=== PATIENT | female | born 1980 | race Caucasian/White ===

== ENCOUNTER 2017-09-03 15:23 | Inpatient (IN) ==
[2017-09-03] MEDS ORDERED: HYDROmorphone 2 MG/1 ML IVP ONE ×2 (15:49→18:37)
[2017-09-03] MEDS ORDERED: Sodium Chloride 0.9% 1,000 ML PRIMARY IV ONE (15:49)
[2017-09-03 16:17] LABS: BASOPHILS # (AUTO) 0.04 10*3/UL; BASOPHILS % (AUTO) 0.2 % (0-1); EOSINOPHILS # (AUTO) 0.22 10*3/UL; EOSINOPHILS % (AUTO) 1.3 % (0-8); Hematocrit [HCT] 39.8 % (37.0-47.0); Hemoglobin [HGB] 13.4 g/dL (12.0-16.0); LYMPHOCYTES # (AUTO) 3.32 10*3/uL; MEAN CORPUSCULAR HEMOGLOBIN 28.6 PG (27-31); MEAN CORPUSCULAR HGB CONC 33.7 g/dL (33-37); MEAN CORPUSCULAR VOLUME 84.9 FL (81-99); MONOCYTES # (AUTO) 1.26 10*3/UL (0.3-0.8); MONOCYTES % (AUTO) 7.4 % (5-15); NEUTROPHILS # (AUTO) 12.12 10*3/UL; NEUTROPHILS % (AUTO) 71.4 % (50-80); RED BLOOD COUNT 4.69 10^6/uL (4.20-5.40)
[2017-09-03 16:21] LABS: BILIRUBIN,URINE NEGATIVE (NEG); CLARITY,URINE Slightly Cloudy (CLEAR); COLOR,URINE YELLOW (Y); GLUCOSE, URINE (UA) NEGATIVE (NEG); OCCULT BLOOD,URINE LARGE (NEG); PROTEIN,URINE 100 mg/dl (NEG); UROBILINOGEN,URINE 0.2 EU/dL (0.2)
[2017-09-03 16:23] LABS: PLATELET MORPHOLOGY COMMENT NORMAL MORPHOLOGY (NORM); RBC MORPHOLOGY COMMENT NORMAL MORPHOLOGY (NORM); WBC MORPHOLOGY COMMENT NORMAL MORPHOLOGY (NORM)
[2017-09-03 16:34] LABS: BACTERIA,URINE FEW; RBC,URINE 15-20 /hpf; SQUAMOUS EPITHELIAL CELL,UR RARE; URINE SAMPLE TYPE CATH SPECIMEN; WBC,URINE 80-100
[2017-09-03 16:39] LABS: BLOOD UREA NITROGEN 6 mg/dL (7-22); LIPASE 62 IU/L (23-300); SERUM ALBUMIN 4.1 g/dL (3.5-4.8)
--- NOTE | 2017-09-03 18:40 | DI ---
CT ABDOMEN SCAN WITH IV CONTRAST, 09/03/2017 3:50 PM : Clinical History: Abdominal pain. Previous Exam: None at this facility. Scans are performed from the lower lung bases through the liver and kidneys with IV contrast. 70 mL o f Isovue 370 was injected IV. No oral or rectal contrast was ordered. The lung bases are clear. A pacemaker lead is visualized in the right ventricle. The liver is normal. The gallbladder is grossly normal. There is no abnormality of the spleen, pancreas, and adrenal glan ds. Both kidneys are normal in size, shape, position and contour. There is no hydronephrosis or hydro ureter. No renal or ureteral calculi are present. There are no abnormal retrocrural or periaortic nod es but there are numerous lymph nodes in the mesentery of the left upper abdomen and several of these are mildly enlarged measuring up to 15 mm in diameter. No ascites is present. READING: There are numerous lymph nodes in the mesentery of the left upper quadrant in some of these are borde rline enlarged measuring up to 15 mm in diameter. The etiology of this finding is uncertain. CT PELVIS SCAN WITH IV CONTRAST, 09/03/2017 3:50 PM: Clinical History: See above. Previous Exam: None at this facility. Scans are performed from just superior to the umbilicus to the symphysis pubis with IV contrast. This is the same bolus of contrast used for the CT scans of the abdomen. Scans through the lower abdomen and pelvis show no masses, enhancing lesions, or abnormal fluid colle ctions. There is no adenopathy. The appendix is normal. The small bowel, terminal ileum, and ileoceca l valve are normal. The colon is also normal. There is a small umbilical hernia through which only me senteric fat has herniated. The uterus is normal and the patient apparently has had embolization of b oth uterine tubes with metallic wires. There is a small cystic 15 mm lesion of the left ovary. The ri ght ovary is normal. READING: Except for a small 15 mm cystic lesion of the left ovary, the study is normal.
[2017-09-03] MEDS ORDERED: cefTRIAXone Inj 1 GM in Sodium Chloride 0.9% 100 ML IV ONE ×2 (18:41→18:42)
--- NOTE | 2017-09-03 21:02 | PDOC ---
HPI - History of Present Illness Date of Service: 09/03/17 Time of Service: 21:00 Chief Complaint: Pain after urination and pain in the left flank area of one day duration History of Present Illness: This is a 37 years old female with medical history significant for history of congestive heart failure with previous defibrillator insertion believed to be secondary to viral infection who presented to the hospital with history of pain after urination. In addition she complained from pain on the left flank area. She picked up [id number] prescription however she continued to have symptoms and because of that she came into the ER. Evaluation in the ER revealed elevated white count, abnormal UA and CT showed mesenteric lymph nodes in the left side because of that she was admitted. She is rating her pain maybe 8 out of 10. However she does not appear in distress. no nausea or vomiting. She did report low grade temperature last night. She lives in [place] and camping in [place] now was planing on returning on Sunday but now she thinks she will return tomorrow. Past Medical History Medical History: 1. History of congestive heart failure with previous defibrillator insertion, last ejection fraction was 60%. 2. History of depression Surgical History: History of defibrillator insertion for low ejection fraction Family History: Reviewed an Not Pertinent Past Social History: Lives in [place], smokes pack-a-day no drugs doesn't drink. Tobacco Use: Smoker Current Status Unknown In the Past 12 Months, Have Used or Abuse Any of the Following Substance: None Alcohol Use: None Medication / Allergies Home Medications: Home Medications 3 Medication Instructions Recorded Confirmed Type Carvedilol 09/03/17 History Prazosin HCl 09/03/17 History Sertraline HCl 09/03/17 History Zolpidem Tartrate [Ambien] BEDTIME PRN 09/03/17 History Allergies/Adverse Reactions: Allergies 3 Allergy/AdvReac Type Severity Reaction Status Date / Time No Known Allergies Allergy Verified 09/03/17 22:26 Review of Systems - Review of Systems All Systems: Reviewed & No Additional Complaints Except as Stated Exam - Vitals Vital Signs: Vital Signs Temperature 36.0 F Temperature Source Temporal Artery Scan Pulse Rate [Pulse Oximeter] 94 Respiratory Rate 20 Blood Pressure [Left Arm] 117/78 Pulse Ox 94 Oxygen Delivery Method Room Air Height 5 ft 3 in Weight 240 lb - General General Appearance: No Acute Distress, Cooperative, Obese - Head Head Exam: Normal Inspection - Eye Eye Exam: POSITIVE: Normal Appearance - ENT ENT Exam: POSITIVE: Normal Exam - Neck Neck Exam: Normal Inspection - Respiratory Respiratory Exam: POSITIVE: Clear to Auscultation - Bilaterally - Cardiovascular Cardiovascular Exam: POSITIVE: RRR - GI/Abdominal GI/Abdominal Exam: POSITIVE: Normal Bowel Sounds, Non Distended, Soft, No Organomegaly Additional GI/Abdominal Exam Details: There is tenderness in the left mid abdomen in the side of the abdomen. No significant CVA tenderness. - Rectal Rectal Exam: POSITIVE: Deferred - External Exam: POSITIVE: Deferred - Extremities Extremities Exam: POSITIVE: Normal Inspection - Back Back Exam: POSITIVE: Normal Inspection - Neurological Neurological Exam: POSITIVE: Alert, Oriented x 3, CN II-XII Intact, No Facial Droop, Speech Intact / Clear, Moves All Extremities Equally - Psychiatric Psychiatric Exam: POSITIVE: Normal Affect Results - Labs CBC and BMP: 09/03/17 16:10 09/03/17 16:10 - Imaging Status: Report Reviewed by Me (CT abdomen There are numerous lymph nodes in the mesentery of the left upper quadrant in some of these are borderline enlarged measuring up to 15 mm in diameter. The etiology of this finding is uncertain. small 15 mm cystic lesion of the left ovary) Assessment and Plan - Patient Problems (1) Pyelonephritis Current Visit: Yes Status: Acute Comment: We'll treat as a pyelonephritis. She received Rocephin will continue with it. Will write for pain medications. I think because of her history of congestive heart failure will hold off on further fluids. Will repeat her labs in the morning. Code(s): N12 - Tubulo-interstitial nephritis, not specified as acute or chronic (2) Mesenteric lymphadenopathy Current Visit: Yes Status: Acute Comment: The reason for enlargement of the mesenteric lymph node on the left side is unclear. May be related to infection. I think because of acute onset of symptoms will treat as an infection. I did tell her that probably when she goes back to [place] and finish her course of antibiotics she need to have a repeat CT to look at the size of those lymph nodes. Code(s): R59.0 - Localized enlarged lymph nodes (3) History of congestive heart failure Current Visit: Yes Status: Acute Comment: Continue carvedilol. She said she is not taking Lasix unless she has some swelling. Code(s): Z86.79 - Personal history of other diseases of the circulatory system (4) History of depression Current Visit: Yes Status: Acute Comment: Continue Zoloft Code(s): Z86.59 - Personal history of other mental and behavioral disorders
[2017-09-03] MEDS ORDERED: Zolpidem Tab 5 MG TAB PO PRN (21:11)
[2017-09-03] MEDS ORDERED: DOCUSATE 100 MG CAPSULE PO PRN (21:14)
[2017-09-03] MEDS ORDERED: CALCIUM CARBONATE 500 MG (TUMS) CHEWABLE TABLET PO PRN (21:14)
[2017-09-03] MEDS ORDERED: ACETAMINOPHEN 325 MG TABLET PO PRN (21:14)
[2017-09-03] MEDS ORDERED: LIDOCAINE W/ SODIUM BICARB 0.5 ML SYR SUBD PRN (21:14)
[2017-09-03] MEDS ORDERED: ONDANSETRON 4 MG/2 ML VIAL IVP PRN (21:14)
[2017-09-03] MEDS ORDERED: HYDROcodone-APAP 5 MG -325 MG TABLET PO PRN (21:14)
[2017-09-03] MEDS: HYDROmorphone 2 MG/1 ML IVP PRN (21:55)
[2017-09-03] MEDS: Sertraline Tab 50 MG TAB PO SCH (21:56)
[2017-09-03] MEDS: CARVEDILOL 12.5 MG TABLET PO SCH (21:56)
--- NOTE | 2017-09-04 01:00 | PDOC ---
Abdomen/Flank HPI - General Chief Complaint: Abdomen Pain Stated Complaint: abdominal pain Date Seen by Provider: 09/03/17 Time Seen by Provider: 15:30 Source: POSITIVE: Patient Exam Limitations: POSITIVE: No limitations Nurse's Notes Reviewed & Considered: Yes - History of Present Illness Initial Comments: The patient is a 37-year-old female. She presents to the emergency room with a 2 day history of right flank and right lower quadrant pain. She states she had dysuria last night. No associated nausea, vomiting, diarrhea, melena, hematochezia, hematemesis, or hematuria. She's had a uterine ablation. She had a section prior to this. Patient has a history of cardiomyopathy, reportedly viral, and she does have a pacemaker defibrillator placed. She states that last night her temperature was 99F. Body Location Affected: REPORTS: Abdomen (Left lower abdomen), Back (Left flank) Timing: REPORTS: Constant, Gradual Duration: >24 hours (2 days) Severity: Moderate Quality: REPORTS: "Pain" Abdominal Pain Onset Location: REPORTS: LLQ, Flank (Left) Abdominal Pain Radiation: REPORTS: No radiation Context: REPORTS: None Modifying Factors: improves with: Other (Worsened by direct palpation) Associated Symptoms: REPORTS: Dysuria Similar Symptoms Previously: No Recent Care Received: REPORTS: Denies Any Prior Injuries Related to Current Complaint?: No - Patient Home Medications Home Medications: Home Medications Carvedilol 09/03/17 Prazosin HCl 09/03/17 Sertraline HCl 09/03/17 Zolpidem Tartrate [Ambien] BEDTIME PRN 09/03/17 - Patient Allergies Allergies/Adverse Reactions: Allergies 3 Allergy/AdvReac Type Severity Reaction Status Date / Time No Known Allergies Allergy Verified 09/03/17 22:26 Past Medical History - heen HEENT History: Denies History Cardiovascular History: Hypertension, Arrhythmia, Internal Defibrillator, Congenital Heart Disease, Other (please comment) Additional Cardiovasular History: cardiomyopathy Respiratory History: Denies History Gastrointestinal History: Denies History Genitourinary History: Denies History Endocrine History: Denies History Musculoskeletal History: Denies History Neurological History: Denies History Blood Disorders: Denies History Psychiatric History: Depression Female Reproductive History: Denies History Obstetrical History: Denies History Cancer History: Denies History In Past Year Been Physically Harmed or Verbally Threatened: No History of MDRO: No Tobacco Use: Smoker Current Status Unknown In the Past 12 Months, Have Used or Abuse Any Substance: None Previous Surgical History: Yes Type / Date of Surgery: Defibulator placement in 2010. Anesthesia Reactions: No Significant Family History: No pertinent family hx Past Medical History Reviewed: Reviewed - No Changes ROS - Limitations ROS Limitations: No Limitations Constitution: REPORTS: Fever (Last night subjectively) Respiratory: REPORTS: Denies Resp Symptoms Neurological: REPORTS: Denies Neuro Symptoms Gastrointestinal: REPORTS: Abdominal Pain (Left lower quadrant) Endocrine: REPORTS: Denies Symptoms Musculoskeletal: REPORTS: Denies MS Symptoms Genitourinary: REPORTS: Dysuria, Flank Pain (Left) Eyes: REPORTS: Denies Symptoms ENT: REPORTS: Denies Symptoms Skin: REPORTS: Denies Skin Symptoms Lympathic: REPORTS: Denies Lympathic Symptoms Immunologic: POSITIVE: Denies Symptoms Psychiatric: POSITIVE: Denies Psych Symptoms Abdominal/Flank Pain PE - General Appearance General Appearance: POSITIVE: Alert, Cooperative, No Evidence of Trauma, Moderate Distress. NEGATIVE: No Acute Distress - HEENT HEENT: POSITIVE: Head Inspection Nml, Eyes Inspection Nml, Ears Inspection Nml, Nose Inspection Nml, Oral/Dental Inspect. Nml, Pharynx Inspect. Nml, PERRL, EOMI - Neck Neck: POSITIVE: Normal Inspection, No Apparent Injury - Respiratory Respiratory: POSITIVE: No Respiratory Distress, Breath Sounds Normal, Chest Non- Tender - Cardiovascular Cardiovascular: POSITIVE: Regular Rate and Rhythm, Heart Sounds Normal, Equal Pulses, Strong Pulses Peripheral Pulses: Radial (R): 2+, Radial (L): 2+ - Chest Chest: POSITIVE: Non Tender - Abdomen Abdomen: Soft: (All Quadrants), Normal Bowel Sounds: (All Quadrants), Denies Tenderness: (RUQ), (LUQ), (RLQ), No Splenomegaly: (All Quadrants), No Hepatomegaly: (All Quadrants), No Guarding: (All Quadrants), No Rebound: (All Quadrants), No Palpable Pulse: (All Quadrants), No Palpabale Mass: (All Quadrants), No Distention: (All Quadrants), No Rigidity: (All Quadrants), Tenderness Noted: (LLQ) Additional Abdominal Details: Abdominal examination shows bowel sounds to be active. She expresses pain on palpation over the left lower abdomen and left flank. No masses, organomegaly or rebound. 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 Lab Results Reviewed by Me: Yes (catheter UA nitrate positive, 8200 white blood cells, 15-20 red blood cells) CBC and BMP: 09/03/17 16:10 09/03/17 16:10 Lab Results:: Laboratory Results 3 09/03/17 09/03/17 09/03/17 16:10 16:10 16:10 WBC 16.99 H RBC 4.69 Hgb 13.4 Hct 39.8 MCV 84.9 MCH 28.6 MCHC 33.7 RDW Std Deviation 41.7 RDW Coeff of Ryan 13.7 Plt Count 327 MPV 10.0 Immature Gran % (Auto) 0.2 Neut % (Auto) 71.4 Lymph % (Auto) 19.5 [place] % (Auto) 7.4 Eos % (Auto) 1.3 Baso % (Auto) 0.2 Immature Gran # (Auto) 0.03 Neut # (Auto) 12.12 Lymph # (Auto) 3.32 [place] # (Auto) 1.26 H Eos # (Auto) 0.22 Baso # (Auto) 0.04 WBC Morphology Comment Normal morphology Plt Morphology Comment Normal morphology RBC Morph Comment Normal morphology Sodium 142 Potassium 4.0 Chloride 106 Carbon Dioxide 24 Anion Gap 12 BUN 6 L Creatinine 0.5 Estimated GFR > 60 BUN/Creatinine Ratio 12.00 Glucose 109 Calculated Osmolality 292.0 Calcium 8.7 Total Bilirubin 0.3 AST 24 ALT 36 Alkaline Phosphatase 102 Total Protein 7.5 Albumin 4.1 Globulin 3.4 Albumin/Globulin Ratio 1.20 L Amylase 63 Lipase 62 Serum HCG, Qual Ur Collection Type Cath specimen Urine Color Yellow Urine Clarity Slightly cloudy Urine pH 6.0 Ur Specific [place] 1.010 Urine Protein 100 A Urine Glucose (UA) Negative Urine Ketones Negative Urine Occult Blood Large H Urine Nitrate Positive A Urine Bilirubin Negative Urine Urobilinogen 0.2 Ur Leukocyte Esterase Moderate Urine RBC 15-20 Urine WBC 80-100 H Ur Squamous Epith Cells Rare Ur Renal Epithelial Cell None Urine Crystals None Urine Bacteria Few Urine Casts None Urine Mucus None Urine Trichomonas None Urine Yeast None Ur Culture Indicated? Culture set 3 09/03/17 16:10 WBC RBC Hgb Hct MCV MCH MCHC RDW Std Deviation RDW Coeff of Ryan Plt Count MPV Immature Gran % (Auto) Neut % (Auto) Lymph % (Auto) [place] % (Auto) Eos % (Auto) Baso % (Auto) Immature Gran # (Auto) Neut # (Auto) Lymph # (Auto) [place] # (Auto) Eos # (Auto) Baso # (Auto) WBC Morphology Comment Plt Morphology Comment RBC Morph Comment Sodium Potassium Chloride Carbon Dioxide Anion Gap BUN Creatinine Estimated GFR BUN/Creatinine Ratio Glucose Calculated Osmolality Calcium Total Bilirubin AST ALT Alkaline Phosphatase Total Protein Albumin Globulin Albumin/Globulin Ratio Amylase Lipase Serum HCG, Qual Negative Ur Collection Type Urine Color Urine Clarity Urine pH Ur Specific [place] Urine Protein Urine Glucose (UA) Urine Ketones Urine Occult Blood Urine Nitrate Urine Bilirubin Urine Urobilinogen Ur Leukocyte Esterase Urine RBC Urine WBC Ur Squamous Epith Cells Ur Renal Epithelial Cell Urine Crystals Urine Bacteria Urine Casts Urine Mucus Urine Trichomonas Urine Yeast Ur Culture Indicated? - Patient's Progress Pain Medication Addressed: POSITIVE: Yes (Patient medicated with Dilaudid for pain) School/Work Release Addressed: POSITIVE: Not Applicable Re-examine Time: 19:50 Re-Examine Comment: Patient given a gram of Rocephin IV in the emergency room. Alternatives of treatment discussed with patient. Patient advised that we could try treating her presumed pyelonephritis with oral antibiotics if her pain is tolerable. Patient states that she is having excessive pain, and therefore patient admitted by hospitalist for further evaluation and treatment. Status: POSITIVE: Improved, Re-Examined - Consult Consult (If Yes, Name of Consulting MD & Time Called): Yes (Dr. Mcneil, hospitalist, 1950) Consulting MD will see pt:: POSITIVE: [facility] Admit Counseled: POSITIVE: Patient, RE: Lab Results, RE: Radiology Results, RE: DX, RE : Need for F/U Patient Care Time - Estimated PCT Patient Care Time (In Minutes): 60 Vital Signs - Recent Vital Signs Vital Signs: Vital Signs (Last 8 hours) Temp Pulse Pulse Resp BP BP Pulse Ox 09/03/17 21:14 98.1 F 98 18 118/81 96 09/03/17 21:13 98.1 F 09/03/17 20:31 20 09/03/17 20:25 97.5 F 104 H 18 136/88 97 - VS Reviewed Vital Signs Reviewed: Yes Discharge Clinical Impression: Pyelonephritis, Mesenteric lymphadenopathy Discharge Disposition: Admit to Inpatient Condition: Good Date Decision to Admit to Inpatient: 09/03/17 Time Decision to Admit to Inpatient: 19:50
[2017-09-04] MEDS: HYDROmorphone 2 MG/1 ML IVP PRN ×3 (01:49→09:24)
[2017-09-04 05:08] LABS: BASOPHILS # (AUTO) 0.04 10*3/UL; BASOPHILS % (AUTO) 0.3 % (0-1); EOSINOPHILS # (AUTO) 0.27 10*3/UL; EOSINOPHILS % (AUTO) 1.9 % (0-8); Hematocrit [HCT] 40.3 % (37.0-47.0); Hemoglobin [HGB] 13.1 g/dL (12.0-16.0); LYMPHOCYTES # (AUTO) 4.03 10*3/uL; MEAN CORPUSCULAR HEMOGLOBIN 28.1 PG (27-31); MEAN CORPUSCULAR HGB CONC 32.5 g/dL (33-37); MEAN CORPUSCULAR VOLUME 86.5 FL (81-99); MEAN PLATELET VOLUME 10.4 FL (7.4-12.2); MONOCYTES # (AUTO) 1.28 10*3/UL (0.3-0.8); MONOCYTES % (AUTO) 8.8 % (5-15); NEUTROPHILS # (AUTO) 8.81 10*3/UL; NEUTROPHILS % (AUTO) 60.8 % (50-80); RED BLOOD COUNT 4.66 10^6/uL (4.20-5.40)
[2017-09-04 05:40] LABS: PLATELET MORPHOLOGY COMMENT NORMAL MORPHOLOGY (NORM); RBC MORPHOLOGY COMMENT NORMAL MORPHOLOGY (NORM); WBC MORPHOLOGY COMMENT NORMAL MORPHOLOGY (NORM)
[2017-09-04 07:16] VITALS: RESP 17; O2SAT 94
[2017-09-04] MEDS: CARVEDILOL 12.5 MG TABLET PO SCH (08:23)
[2017-09-04] MEDS: Sertraline Tab 50 MG TAB PO SCH (08:23)
[2017-09-04 11:08] VITALS: BP 117/75; TEMP 97.1
[2017-09-04] MEDS ORDERED: VYVANSE 40 MG PO SCH (11:15)
[2017-09-04] MEDS ORDERED: [UNRECOGNIZED DRUG - OTHER] PO SCH (11:30)
[2017-09-04] MEDS ORDERED: oxyCODONE IR Tab 5 MG TAB PO PRN (12:37)
[2017-09-04] MEDS ORDERED: CEPHALEXIN 500 MG CAPSULE PO ONE (13:43)
--- NOTE | 2017-09-04 16:18 | DCSUMMARY ---
Hospitalization Summary Admit Date: 09/03/2017 Discharge Date: 09/04/17 Primary Diagnosis:: urinary tract infection, present on admission Secondary Diagnosis:: Left upper quadrant mesentery lymphadenitis, unclear etiology. Hospital Course: This very pleasant 37-year-old female that presented with symptoms consistent with urinary tract infection and left upper quadrant pain. A CT scan was done to look for pyelonephritis with contrast, and there is no evidence of pyelonephritis, but the patient had multiple inflamed lymph nodes and enlarged lymph nodes in the left upper quadrant region in the mesentery. The patient has never had this before. She feels significantly better after a single dose of Rocephin, has no nausea, no vomiting, no chest pain, no shortness breath, and she really would like to go home. I spoke to gastroenterology in [place], regarding the mesenteric lymphadenitis, and they suggested that the differential could include lymphoma, infection, or inflammatory bowel disease. They recommended a gastroenterology workup. I offered the patient consideration for scheduling all this in [place], but she would like to do this in [place], [place], as it is much closer to [place], [place], where the patient resides. I spoke to the patient's doctor, Dr. Orellana, with these recommendations. At this point is to treat the urinary tract infection as it is a gram-negative suzette, with greater than 100,000 colony- forming units. I suspected Escherichia coli, but will continue to follow the culture. We will de-escalate antibiotics to Keflex, 500 mg by mouth twice a day and treat for 5 days. Her, pain is well controlled with oxycodone, and I'll prescribe that as well and discharge for continued management of the pain in the left upper quadrant. The patient does have some neck and back pain, but no other arthritic symptoms, no other diarrheal symptoms, no loss of weight, and nothing else to suggest Whipple's disease. I told the patient she developed the symptoms, she should re -presented to the emergency room for evaluation. I recommended to the patient that she have a gastroenterology evaluation for inflammatory bowel disease and we trav the blood test evaluation prior to discharge. Give the patient perception for CT scan to do in 3 weeks with a diagnosis of left upper quadrant lymphadenitis. If the lymph nodes are still inflamed, I told the patient that she should consider seeing a surgeon for potential biopsy. Assessment and Plan: 1. As per discharge assessments noted 2. Disposition: Patient is discharged home. 3. Condition on discharge, stable and improved. 4. Diet: regular diet 5. Activities: resume normal activities 6. Follow-Up: 1. Dr. Vivian Orellana within 7 days in [place], [place] 2. 7. Medications at the Time of Discharge: Home Medications 3 Medication Instructions Recorded Confirmed Type Carvedilol 12.5 mg PO DAILY 09/03/17 09/04/17 History Prazosin HCl 1 mg PO DAILY 09/03/17 09/04/17 History Sertraline HCl 100 mg PO DAILY 09/03/17 09/04/17 History Zolpidem Tartrate [Ambien] 10 mg PO BEDTIME PRN 09/03/17 09/04/17 History Cephalexin [Keflex] 500 mg PO BID #8 cap 09/04/17 Rx oxyCODONE IR Tab [OxyIR Tab] 5 mg PO Q6H PRN #30 tablet 09/04/17 Rx 8. Time, care, counseling and coordination of care for this discharge is greater than 30 minutes. Exam - Vitals Vital Signs: Vital Signs Temperature 97.1 F Temperature Source Temporal Artery Scan Pulse Rate [Pulse Oximeter] 92 Pulse Rate 104 Respiratory Rate 17 Blood Pressure [Right Arm] 103/61 Blood Pressure [Left Arm] 117/75 Blood Pressure 136/88 Pulse Ox 94 Oxygen Delivery Method Room Air Height 5 ft 3 in Weight 240 lb - General General Appearance: No Acute Distress, Cooperative - Head Head Exam: Normal Inspection, Normocephalic, Atraumatic - Eye Eye Exam: POSITIVE: No Scleral Icterus - ENT ENT Exam: POSITIVE: Mucous Membranes Moist - Respiratory Respiratory Exam: POSITIVE: Clear to Auscultation - Bilaterally, Breathing Non Labored - Cardiovascular Cardiovascular Exam: POSITIVE: RRR, No Murmur, No Clicks, No Gallops, No Rubs, No JVD - GI/Abdominal GI/Abdominal Exam: POSITIVE: Normal Bowel Sounds, Non Tender, Non Distended, Soft - Extremities Extremities Exam: POSITIVE: No Clubbing Present, No Edema Present, No Cyanosis Present - Neurological Neurological Exam: POSITIVE: Alert, Oriented x 3, Normal Gait, No Facial Droop, Speech Intact / Clear, Moves All Extremities Equally - Psychiatric Psychiatric Exam: POSITIVE: Normal Affect, Normal Mood Data Peritnent Studies: Laboratory Results 09/03/17 09/03/17 09/03/17 Range/Units 16:10 16:10 16:10 WBC 16.99 H (4.8-10.8) 10^3/uL RBC 4.69 (4.20-5.40) 10^6/uL Hgb 13.4 (12.0-16.0) g/dL Hct 39.8 (37.0-47.0) % MCV 84.9 (81-99) FL MCH 28.6 (27-31) PG MCHC 33.7 (33-37) g/dL RDW Std Deviation 41.7 (39-50) fL RDW Coeff of Ryan 13.7 (11.5-14.5) % Plt Count 327 (140-350) 10*3/uL MPV 10.0 (7.4-12.2) FL Immature Gran % (Auto) 0.2 (0-5) % Neut % (Auto) 71.4 (50-80) % Lymph % (Auto) 19.5 (10-50) % Foard % (Auto) 7.4 (5-15) % Eos % (Auto) 1.3 (0-8) % Baso % (Auto) 0.2 (0-1) % Immature Gran # (Auto) 0.03 10*3/UL Neut # (Auto) 12.12 10*3/UL Lymph # (Auto) 3.32 10*3/uL Foard # (Auto) 1.26 H (0.3-0.8) 10*3/UL Eos # (Auto) 0.22 10*3/UL Baso # (Auto) 0.04 10*3/UL WBC Morphology Comment Normal morphology (NORM) Plt Morphology Comment Normal morphology (NORM) RBC Morph Comment Normal morphology (NORM) Sodium 142 (135-145) meq/L Potassium 4.0 (3.8-5.2) meq/L Chloride 106 (98-112) meq/L Carbon Dioxide 24 (23-33) meq/L Anion Gap 12 (5-20) BUN 6 L (7-22) mg/dL Creatinine 0.5 (0.50-1.20) mg/dL Estimated GFR > 60 (>60 ml/min/1.73m(2)) BUN/Creatinine Ratio 12.00 (6-20) Glucose 109 (78-110) mg/dL Calculated Osmolality 292.0 (267-292) mOsm/kg Calcium 8.7 (8.7-10.7) mg/dL Total Bilirubin 0.3 (0.3-1.2) mg/dL AST 24 (8-39) IU/L ALT 36 (9-52) IU/L Alkaline Phosphatase 102 (38-126) IU/L Total Protein 7.5 (6.1-8.0) g/dL Albumin 4.1 (3.5-4.8) g/dL Globulin 3.4 (2.50-4.10) g/dL Albumin/Globulin Ratio 1.20 L (1.3-2.0) mg/g Amylase 63 (30-110) U/L Lipase 62 (23-300) IU/L Serum HCG, Qual Ur Collection Type Cath specimen Urine Color Yellow (Y) Urine Clarity Slightly cloudy (CLEAR) Urine pH 6.0 (5.0-8.5) Ur Specific [place] 1.010 (1.005-1.030) Urine Protein 100 A (NEG) mg/dl Urine Glucose (UA) Negative (NEG) mg/dL Urine Ketones Negative (NEG) Urine Occult Blood Large H (NEG) Urine Nitrate Positive A (NEG) Urine Bilirubin Negative (NEG) Urine Urobilinogen 0.2 (0.2) EU/dL Ur Leukocyte Esterase Moderate (NEG) Urine RBC 15-20 (NONE) /hpf Urine WBC 80-100 H (NONE) Ur Squamous Epith Cells Rare (NONE) Ur Renal Epithelial Cell None (NONE) Urine Crystals None Urine Bacteria Few (NONE) Urine Casts None (NONE) Urine Mucus None (NONE) Urine Trichomonas None (NONE) Urine Yeast None (NONE) Ur Culture Indicated? Culture set 09/03/17 09/04/17 Range/Units 16:10 04:22 WBC 14.47 H (4.8-10.8) 10^3/uL RBC 4.66 (4.20-5.40) 10^6/uL Hgb 13.1 (12.0-16.0) g/dL Hct 40.3 (37.0-47.0) % MCV 86.5 (81-99) FL MCH 28.1 (27-31) PG MCHC 32.5 L (33-37) g/dL RDW Std Deviation 42.5 (39-50) fL RDW Coeff of Ryan 13.8 (11.5-14.5) % Plt Count 320 (140-350) 10*3/uL MPV 10.4 (7.4-12.2) FL Immature Gran % (Auto) 0.3 (0-5) % Neut % (Auto) 60.8 (50-80) % Lymph % (Auto) 27.9 (10-50) % Foard % (Auto) 8.8 (5-15) % Eos % (Auto) 1.9 (0-8) % Baso % (Auto) 0.3 (0-1) % Immature Gran # (Auto) 0.04 10*3/UL Neut # (Auto) 8.81 10*3/UL Lymph # (Auto) 4.03 10*3/uL Foard # (Auto) 1.28 H (0.3-0.8) 10*3/UL Eos # (Auto) 0.27 10*3/UL Baso # (Auto) 0.04 10*3/UL WBC Morphology Comment Normal morphology (NORM) Plt Morphology Comment Normal morphology (NORM) RBC Morph Comment Normal morphology (NORM) Sodium (135-145) meq/L Potassium (3.8-5.2) meq/L Chloride (98-112) meq/L Carbon Dioxide (23-33) meq/L Anion Gap (5-20) BUN (7-22) mg/dL Creatinine (0.50-1.20) mg/dL Estimated GFR (>60 ml/min/1.73m(2)) BUN/Creatinine Ratio (6-20) Glucose (78-110) mg/dL Calculated Osmolality (267-292) mOsm/kg Calcium (8.7-10.7) mg/dL Total Bilirubin (0.3-1.2) mg/dL AST (8-39) IU/L ALT (9-52) IU/L Alkaline Phosphatase (38-126) IU/L Total Protein (6.1-8.0) g/dL Albumin (3.5-4.8) g/dL Globulin (2.50-4.10) g/dL Albumin/Globulin Ratio (1.3-2.0) mg/g Amylase (30-110) U/L Lipase (23-300) IU/L Serum HCG, Qual Negative Ur Collection Type Urine Color (Y) Urine Clarity (CLEAR) Urine pH (5.0-8.5) Ur Specific [place] (1.005-1.030) Urine Protein (NEG) mg/dl Urine Glucose (UA) (NEG) mg/dL Urine Ketones (NEG) Urine Occult Blood (NEG) Urine Nitrate (NEG) Urine Bilirubin (NEG) Urine Urobilinogen (0.2) EU/dL Ur Leukocyte Esterase (NEG) Urine RBC (NONE) /hpf Urine WBC (NONE) Ur Squamous Epith Cells (NONE) Ur Renal Epithelial Cell (NONE) Urine Crystals Urine Bacteria (NONE) Urine Casts (NONE) Urine Mucus (NONE) Urine Trichomonas (NONE) Urine Yeast (NONE) Ur Culture Indicated? Procedures: [address] Medicine. [facility] [place] Paulino [address] PH: DD: [phone] FAX: [phone] ~DIAGNOSTIC IMAGING REPORT~ Patient: Mickie Sepulveda : 1980 Sex: F Age: 37 Exam Name: CT Abdomen/Pelvis W Contrast Exam Date: 09/03/17 Report # : [id number] CPT Code: 39104 EMR/MR #: [id number] Ordering: LAN WELLS Admiting: Primary: NONE,NONE Attending: Signed CT ABDOMEN SCAN WITH IV CONTRAST, 09/03/2017 3:50 PM : Clinical History: Abdominal pain. Previous Exam: None at this facility. Scans are performed from the lower lung bases through the liver and kidneys with IV contrast. 70 mL of Isovue 370 was injected IV. No oral or rectal contrast was ordered. The lung bases are clear. A pacemaker lead is visualized in the right ventricle. The liver is normal. The gallbladder is grossly normal. There is no abnormality of the spleen, pancreas, and adrenal glands. Both kidneys are normal in size, shape, position and contour. There is no hydronephrosis or hydroureter. No renal or ureteral calculi are present. There are no abnormal retrocrural or periaortic nodes but there are numerous lymph nodes in the mesentery of the left upper abdomen and several of these are mildly enlarged measuring up to 15 mm in diameter. No ascites is present. READING: There are numerous lymph nodes in the mesentery of the left upper quadrant in some of these are borderline enlarged measuring up to 15 mm in diameter. The etiology of this finding is uncertain. CT PELVIS SCAN WITH IV CONTRAST, 09/03/2017 3:50 PM: Clinical History: See above. Previous Exam: None at this facility. Scans are performed from just superior to the umbilicus to the symphysis pubis with IV contrast. This is the same bolus of contrast used for the CT scans of the abdomen. Scans through the lower abdomen and pelvis show no masses, enhancing lesions, or abnormal fluid collections. There is no adenopathy. The appendix is normal. The small bowel, terminal ileum, and ileocecal valve are normal. The colon is also normal. There is a small umbilical hernia through which only mesenteric fat has herniated. The uterus is normal and the patient apparently has had embolization of both uterine tubes with metallic wires. There is a small cystic 15 mm lesion of the left ovary. The right ovary is normal. READING: Except for a small 15 mm cystic lesion of the left ovary, the study is normal. Patient Problems - Patient Problem List (1) UTI (urinary tract infection) Current Visit: Yes Status: Acute Code(s): N39.0 - Urinary tract infection, site not specified Qualifiers: Urinary tract infection type: acute cystitis Hematuria presence: with hematuria Qualified Code(s): N30.01 - Acute cystitis with hematuria Category: Medical (2) Mesenteric lymphadenopathy Current Visit: Yes Status: Acute Code(s): R59.0 - Localized enlarged lymph nodes Category: Medical (3) History of congestive heart failure Current Visit: Yes Status: Acute Code(s): Z86.79 - Personal history of other diseases of the circulatory system Category: Medical
[2017-09-04] MEDS ORDERED: cefTRIAXone Inj 2 GM in Sodium Chloride 0.9% 100 ML IV SCH (18:00)
[2017-09-04] MEDS ORDERED: CEPHALEXIN 500 MG CAPSULE PO SCH (21:00)
[2017-09-04] MEDS ORDERED: PRAZOSIN HCL 1 MG PO SCH (21:00)
[2017-09-07 10:04] LABS: NEUTROPHIL SPECIFIC ANTIBODIES Negative (Negative)
== END 2017-09-04 16:42 | disposition home or self-care (01) | DRG 690 ==
LOC: ER 15:23 → MED/SURG 20:06
PROVIDERS: ADMIT Internal Medicine; ATTEND Internal Medicine